=== PATIENT | male | born 1990 | race Caucasian/White ===

== ENCOUNTER 2019-08-02 14:03 | Inpatient (IN) | payer SELFPAY ==
[~2019-08-02] VITALS: Ht 182.9 cm; Wt 73.6 kg
[2019-08-02 14:25] LABS: BASOPHILS 0.6 % (0-2); EOSINOPHILS 2.4 % (0-7); HEMATOCRIT 40.9 % (42.0-54.0); HEMOGLOBIN 13.6 g/dL (13.5-17.5); IMMATURE GRANULOCYTES 0.4 % (0-5); LYMPHOCYTES 26.5 % (15-50); MCH 36.6 pg (26.0-34.0); MCHC 33.3 g/dL (31.0-37.0); MCV 109.9 fL (80.0-100.0); MEAN PLATELET VOLUME 11.6 fL (7.4-10.4); MONOCYTES 17.1 % (2-11); PLATELET COUNT 104 10x3/uL (130-400); RBC 3.72 10x6/uL (4.20-6.10); RDW 13.9 % (11.5-14.5); WBC 5.4 10x3/uL (4.8-10.8)
[2019-08-02 15:04] LABS: CALC OSMOLALITY 278 mosm/kg (275-300); CALCIUM 9.3 mg/dL (8.5-10.1); CARBON DIOXIDE 14.6 mmol/L (21.0-32.0); CHLORIDE - SERUM 98 mmol/L (98-107); CREATININE - SERUM 0.9 mg/dL (0.6-1.3); GLUCOSE 107 mg/dL (74-106); SODIUM 141 mmol/L (136-145); UREA NITROGEN 7 mg/dL (7-18); eGFR NON AFRICAN AMERICAN > 90 mL/min (90-120)
[2019-08-02 15:09] LABS: ALBUMIN 4.6 g/dL (3.4-5.0); ALKALINE PHOSPHATASE 112 U/L (46-116); ALT (SGPT) 191 U/L (10-68); BILIRUBIN - TOTAL 0.79 mg/dL (0.2-1.3); MAGNESIUM - SERUM 1.8 mg/dL (1.8-2.4)
[2019-08-02 15:29] LABS: APPEARANCE CLEAR (CLEAR); COLOR YELLOW (YELLOW)
[2019-08-02 15:30] LABS: BILIRUBIN NEGATIVE (NEGATIVE); GLUCOSE NEGATIVE (NEGATIVE); KETONE NEGATIVE (NEGATIVE); NITRITE NEGATIVE (NEGATIVE); PROTEIN TRACE mg/dL (NEGATIVE); UROBILINOGEN NORMAL (NORMAL)
[2019-08-02 15:31] LABS: BACTERIA FEW /hpf (NEGATIVE); RED CELLS - URINE 0-5 /hpf (0-5); WHITE CELLS - URINE OCC /hpf (NEGATIVE)
[2019-08-02 15:35] LABS: UDS - AMPHET NEGATIVE QUAL (NEGATIVE); UDS - BARB NEGATIVE QUAL (NEGATIVE); UDS - BENZO POSITIVE QUAL (NEGATIVE); UDS - COCAINE NEGATIVE QUAL (NEGATIVE); UDS - OPIATE NEGATIVE QUAL (NEGATIVE); UDS - PCP NEGATIVE QUAL (NEGATIVE); UDS - THC NEGATIVE QUAL (NEGATIVE)
--- NOTE | 2019-08-02 18:40 | NUR ---
PT RECIEVED VIA ED STRETCHER. TRANSFERRED TO ICU BED CV06. PT IS AWAKE AND FOLLOWS SIMPLE COMMANDS. SHAKING AND HAVING DIFFICULTY WITH FINE MOTOR SKILLS. REPEATEDLY SAYING HE HAS TO GO SMOKE. TOLD THAT HE CANT. HE IS PICKING AT ALL MONITOR EQUIPMENT AND IV LINES. LINES ARE HIDDEN TO HOPEFULLY PREVENT HIM PULLING THEM OUT.
[2019-08-02 18:41] LABS: INR 0.97 (0.85-1.17); PROTIME 12.4 SECONDS (11.6-15.0)
[2019-08-02 19:00] VITALS: BP 118/88
--- NOTE | 2019-08-02 19:15 | NUR ---
PT RESTING WITH EYES CLOSED AND CHEST RISING. NO S/S OF DISTRESS. AWOKEN TO VERBAL STIMULI. PT QUICKLY BACK TO SLEEP WITHOUT STIMULI. UPPER EXTREMETIES WEAK, WITH EYES DILATED TO 5 WITH SLOW REACTION TO LIGHT. CHATMAN PATENT. IV TO RIGHT FOREARM, AND LEFT HAND. RECEIVING SODIUM BICARB, LRD5, AND POTASSIUM CHLORIDE. WILL CONTINUE TO OBSERVE.
[2019-08-02 20:00] VITALS: BP 127/84
[2019-08-02 21:00] VITALS: BP 119/80
[2019-08-02 21:41] VITALS: BP 128/102; Ht 182.9 cm; Wt 73.6 kg
--- NOTE | 2019-08-02 21:45 | NUR ---
PT RESTING WITH EYES CLOSED AND CHEST RISING. EASILY AWOKEN TO VERBAL STIMULI. SOME CONFUSION NOTED. NO S/S OF DISTRESS. CALL LIGHT IN REACH. WILL CONTINUE TO OBSERVE.
[2019-08-02 22:00] VITALS: BP 112/83
[2019-08-02 23:00] VITALS: BP 109/85
--- NOTE | 2019-08-02 23:13 | NUR ---
PT RESTING WITH EYES CLOSED AND CHEST RISING. EASILY AWOKEN WITH VERBAL STIMULI. NO S/S OF DISTRESS. CONFUSION NOTED WITH IMPROVEMENT NOTED. UPPER EXTREMITY STRENGTH WEAKENED. WILL CONTINUE TO OBSERVE.
[2019-08-03] VITALS (16 sets, daily range): BP systolic 101–126; BP diastolic 60–85
--- NOTE | 2019-08-03 03:05 | NUR ---
PT RESTING WITH EYES CLOSED AND CHEST RISING. NO S/S OF DISTRESS. WILL CONTINUE TO OBSERVE.
[2019-08-03 06:35] LABS: ALBUMIN 4.1 g/dL (3.4-5.0); ALKALINE PHOSPHATASE 98 U/L (46-116); ALT (SGPT) 154 U/L (10-68); BILIRUBIN - TOTAL 1.05 mg/dL (0.2-1.3); CHLORIDE - SERUM 98 mmol/L (98-107); MAGNESIUM - SERUM 2.1 mg/dL (1.8-2.4); SODIUM 135 mmol/L (136-145)
--- NOTE | 2019-08-03 06:40 | NUR ---
PT WITH EYES CLOSED AND CHEST RISING. EASILY AWOKEN TO VERBAL STIMULI. RECEIVED SCHEDULED MEDICATIONS PER NOV. TOLERATED WELL.
--- NOTE | 2019-08-03 07:00 | NUR ---
SHIFT ASSESSMENT COMPLETED. PT CARE ASSUMED. MONITORS ON AND WORKING, VITALS STABLE,PT CONFUSED BUT ORIENTED TO TIME AND PLACE. CALL LIGHT WIHTIN REACH, SEE FLOW SHEET FOR FURTHER DETAILS. WILL CONTINUE TO OBSERVE.
[2019-08-03 07:07] LABS: CALC OSMOLALITY 270 mosm/kg (275-300); CARBON DIOXIDE 29.7 mmol/L (21.0-32.0); CREATININE - SERUM 0.5 mg/dL (0.6-1.3); GLUCOSE 170 mg/dL (74-106); POTASSIUM - SERUM 4.1 mmol/L (3.5-5.1); UREA NITROGEN 5 mg/dL (7-18); eGFR NON AFRICAN AMERICAN > 90 mL/min (90-120)
--- NOTE | 2019-08-03 09:00 | NUR ---
FAMILY AT BEDSIDE, UPDATE PROVIDED, NO SIGNS/SYMPTOMS OF PAIN OR DISCOMFORT NOTED AT THIS TIME, PRN ATIVAN GIVEN Q1HR FOR DTS, CALL LIGHT WITHIN REACH, WILL CONTINUE TO OBSERVE.
--- NOTE | 2019-08-03 11:00 | NUR ---
PT THREATENS TO LEAVE AMA REGULARLY, ATIVAN PRN GIVEN Q1H FOR DTS, PT AWAKE AND ALERT TO PERSON PLACE TIME ETC. MONITORS ON AND WORKING, VITALS STABLE, CALL LIGHT WITHIN REACH, SEE FLOW SHEET FOR FURTHER DETAILS. WILL CONTINNUE TO OBSERVE.
--- NOTE | 2019-08-03 13:00 | NUR ---
PT SITTING UP IN BED THREATENING TO LEAVE AMA, MONITORS ON AND WORKING, VITALS STABLE, CALL LIGHT WITHIN REACH, WILL CONTINUE TO OBSERVE.
--- NOTE | 2019-08-03 15:28 | NUR ---
AFTER MULTIPLE REATTEMPTS TO REORIENT THE PT AND TO EXPLAIN THAT HE IS NOT TO GET OOB, DR KAMARA NOTIFIED AND SOFT RESTRAINTS FOR WRIST ORDERED.
--- NOTE | 2019-08-03 15:52 | NUR ---
PT LEFT FOR MRI.
--- NOTE | 2019-08-03 16:28 | NUR ---
PT BACK IN THE UNIT. HOOKED TO ICU MONITORS. PT CALM AT THIS TIME. PT MADE A VERBAL AGREEMENT THAT HE WOULD NOT CLIMB OOB. ALARMS ON AND PT IN SITE OF NURSING STATION. PT LEFT UNRESTRAINED.
--- NOTE | 2019-08-03 16:34 | NUR ---
DR MAYER NOTIFIED ABOUT MRI RESULTS. HE STATED HE WILL BE UP TO SEE THE PT SOON.
--- NOTE | 2019-08-03 17:48 | NUR ---
PT STILL ATTEMPTING TO CLIMB OOB. BED ALARMS ON PT WAS RESTRAINED. PT A&O X4. "IF I DONT WANT TO BE HERE, THEN I CAN LEAVE." DR KAMARA CALLED AND NOTIFIED. PT LEAVING AMA.
--- NOTE | 2019-08-03 18:02 | NUR ---
DR KAMARA NOTIFIED THAT THE PT IS LEAVING AMA.
--- NOTE | 2019-08-03 18:02 | NUR ---
PT IS A&O X4. HE IS ANSWERING ANSWERS APPROPRIATELY. PT STILL DEMANDING TO LEAVE AMA. PT HAS BEEN EXPLAINED THE RISK AND BENEFITS OF LEAVING AMA AND THAT POSSIBLE COULD OCCURE. PT SIGNED AMA PAPER WORK AND HIS MOTHER WAS NOTIFIED TO PICK HIM UP.
--- NOTE | 2019-08-03 18:06 | NUR ---
DR MAYER PAGED AND MADE AWARE THAT THE PT IS LEAVING AMA.
--- NOTE | 2019-08-03 18:09 | NUR ---
IV DCD TO RT WRIST AT THIS TIME. CATHETER TIP INTACT.
--- NOTE | 2019-08-03 18:40 | NUR ---
LEFT AMA AT THIS TIME WITH ALL PERSONAL ITEMS VIA PERSONAL VEHICLE WITH MOTHER AND FATHER. PT ALERT AND ORIENTED. PT AND PTS FAMILY STATE THEY UNDERSTAND THE CONSEQUENCES RELATED TO PT LEAVING AMA, PT STATES HE DOES NOT CARE. PTS PARENTS ENCOURAGE PT TO STAY IN HOSPITAL AND NOT LEAVE AMA, PT STILL STATES HE WANTS TO LEAVE AND REFUSES TO STAY. AMA PAPERWORK SIGNED BY PT, WITNESSED BY A SECOND NURSE. NO FURTHER ACTIONS.
--- NOTE | 2019-08-04 17:43 | MORECARE ---
CASE MANAGEMENT DISCHARGE SUMMARY PATIENT: CORNELIUS GOLD UNIT: [id number] ADM DATE: 08/02/19 AGE: 28 : [birth year] SEX: M ROOM/BED: [facility] AUTHOR: NAKUL BRAVO PHYSICIAN: REFERRING PHYSICIAN: JUSTYNA KAMARA MD DATE OF SERVICE: 08/04/19 Discharge Plan Patient Name: CORNELIUS GOLD [facility] [facility] 1990 Planned Disposition: Anticipated Discharge Date: Discharge Date: 08/03/2019 Expected LOS: Initial Reviewer: [email or web address] Initial Review Date: 08/02/2019 Generated: 08/04/19 6:43 pm Patient Name: CORNELIUS GOLD Page [id number] at 1743 All edits/amendments must be made on the electronic document DICTATION DATE: 08/04/191742 AIRPLANE TESTER: ISIDRA 08/04/191742 RPT#: [id number] DC DATE:08/03/19 STATUS: DIS IN [facility] [address] [facility] [place] [address] END OF REPORT
== END 2019-08-03 18:53 | disposition left against medical advice (07) | DRG 101 ==
LOC: EDBD 14:03 → D.ER 14:03 → D.CVICU 16:24
PROVIDERS: Emergency Medicine; ADMIT Internal Medicine Nephrology; ATTEND Internal Medicine Nephrology
DX: G40.901 Epilepsy, unspecified, not intractable, with status epilepticus (principal); E87.2 Acidosis; F10.231 Alcohol dependence with withdrawal delirium; E87.6 Hypokalemia; R74.0 Nonspecific elevation of levels of transaminase and lactic acid dehydrogenase [LDH]; D75.89 Other specified diseases of blood and blood-forming organs; G93.9 Disorder of brain, unspecified; W19.XXXA Unspecified fall, initial encounter

== ENCOUNTER 2019-08-03 20:10 | Inpatient (IN) | payer SELFPAY ==
[~2019-08-03] VITALS: Ht 182.9 cm; Wt 68.9 kg
[2019-08-03 20:52] LABS: BASOPHILS 0 % (0-2); EOSINOPHILS 0 % (0-7); HEMOGLOBIN 13.8 g/dL (13.5-17.5); IMMATURE GRANULOCYTES 0.1 % (0-5); LYMPHOCYTES 4.2 % (15-50); MCH 35.8 pg (26.0-34.0); MCHC 33.7 g/dL (31.0-37.0); MONOCYTES 9.1 % (2-11); NEUTROPHILS 86.6 % (40-80); PLATELET COUNT 87 10x3/uL (130-400); RBC 3.86 10x6/uL (4.20-6.10); RDW 13.2 % (11.5-14.5)
[2019-08-03 20:53] LABS: MCV 106.2 fL (80.0-100.0); WBC 8.3 10x3/uL (4.8-10.8)
[2019-08-03 20:53] LABS: COLOR YELLOW (YELLOW)
[2019-08-03 20:54] LABS: APPEARANCE CLEAR (CLEAR); BILIRUBIN NEGATIVE (NEGATIVE); GLUCOSE NEGATIVE (NEGATIVE); KETONE MODERATE mg/dL (NEGATIVE); NITRITE NEGATIVE (NEGATIVE); PROTEIN 1+ mg/dL (NEGATIVE); UROBILINOGEN NORMAL (NORMAL)
[2019-08-03 20:54] LABS: CALCIUM 9.4 mg/dL (8.5-10.1); CARBON DIOXIDE 29.2 mmol/L (21.0-32.0); CHLORIDE - SERUM 97 mmol/L (98-107); GLUCOSE 137 mg/dL (74-106); POTASSIUM - SERUM 3.7 mmol/L (3.5-5.1); SODIUM 134 mmol/L (136-145)
[2019-08-03 20:55] LABS: BACTERIA FEW /hpf (NEGATIVE); EPITHELIAL CELLS NSEEN /hpf (0-5); WHITE CELLS - URINE 0-5 /hpf (NEGATIVE)
[2019-08-03 20:55] LABS: CALC OSMOLALITY 267 mosm/kg (275-300); CREATININE - SERUM 0.8 mg/dL (0.6-1.3); UREA NITROGEN 8 mg/dL (7-18); eGFR NON AFRICAN AMERICAN > 90 mL/min (90-120)
[2019-08-03 21:02] LABS: ALBUMIN 4.2 g/dL (3.4-5.0); ALKALINE PHOSPHATASE 101 U/L (46-116); ALT (SGPT) 153 U/L (10-68); PROTEIN - SERUM 8.6 g/dL (6.4-8.2)
[2019-08-03 21:06] VITALS: BP 116/86
[2019-08-03 21:46] LABS: UDS - AMPHET NEGATIVE QUAL (NEGATIVE); UDS - BARB NEGATIVE QUAL (NEGATIVE); UDS - BENZO POSITIVE QUAL (NEGATIVE); UDS - COCAINE NEGATIVE QUAL (NEGATIVE); UDS - OPIATE NEGATIVE QUAL (NEGATIVE); UDS - PCP NEGATIVE QUAL (NEGATIVE); UDS - THC NEGATIVE QUAL (NEGATIVE)
[2019-08-03 22:03] VITALS: BP 123/91
--- NOTE | 2019-08-03 23:00 | NUR ---
dilantin iv push administration complete at this time.
[2019-08-03 23:08] VITALS: BP 120/90
--- NOTE | 2019-08-03 23:40 | NUR ---
RECIEVED PT BY WHEELCHAIR ACCOMPANIED BY HOSPITAL STAFF. ALERT AND ORIENTED X4. VS STABLE AND AFEBRILE. RESPIRATIONS EVEN AND UNLABORED. NO VISUAL CUES OF DISTRESS NOTED. DENIES ANY OTHER NEEDS AT THIS TIME. BED LOW, SIDE RAILS UP X2. CALL LIGHT IN REACH. WILL CONTINUE TO MONITOR.
[2019-08-03 23:52] VITALS: BP 130/92; BMI 20.6
[2019-08-04] VITALS (13 sets, daily range): BP systolic 98–127; BP diastolic 59–98; Ht 182.9 cm; Wt 68.9 kg
--- NOTE | 2019-08-04 01:00 | NUR ---
PT RESTING IN BED, NO ACUTE DISTRESS NOTED. AUGUST WU APN SPOKE WITH PATIENT, UPDATED ON STATUS. PT CONTINUES TO BE CONFUSED AND DISORIENTED TO TIME, PLACE, AND SITUATION. AVDISED PT AGAINST LEAVING AMA. WILL CONTINUE TO MONITOR.
--- NOTE | 2019-08-04 03:00 | NUR ---
PT DISORIENTED TO PLACE, TIME, AND SITUATION. PT STATED HE WAS "READY TO GET OUT OF HERE, HE'S GOT THINGS TO DO TODAY." REORIENTED NEEDED AND REINFORCED PLAN OF CARE.
[2019-08-04 03:41] LABS: BASOPHILS 0 % (0-2); EOSINOPHILS 0 % (0-7); HEMATOCRIT 37.2 % (42.0-54.0); HEMOGLOBIN 12.3 g/dL (13.5-17.5); IMMATURE GRANULOCYTES 0.2 % (0-5); MCHC 33.1 g/dL (31.0-37.0); MEAN PLATELET VOLUME 12.4 fL (7.4-10.4); MONOCYTES 11.9 % (2-11); NEUTROPHILS 76.9 % (40-80); PLATELET COUNT 80 10x3/uL (130-400); RBC 3.51 10x6/uL (4.20-6.10); RDW 13.2 % (11.5-14.5); WBC 6.5 10x3/uL (4.8-10.8)
[2019-08-04 03:46] LABS: PLATELET ESTIMATE DECREASED
[2019-08-04 03:55] LABS: ALBUMIN 3.7 g/dL (3.4-5.0); ALKALINE PHOSPHATASE 85 U/L (46-116); ALT (SGPT) 127 U/L (10-68); BILIRUBIN - TOTAL 0.95 mg/dL (0.2-1.3); CALC OSMOLALITY 272 mosm/kg (275-300); CALCIUM 8.7 mg/dL (8.5-10.1); CARBON DIOXIDE 29.7 mmol/L (21.0-32.0); CHLORIDE - SERUM 100 mmol/L (98-107); CREATININE - SERUM 0.6 mg/dL (0.6-1.3); GLUCOSE 99 mg/dL (74-106); PHENYTOIN (DILANTIN) 9.3 ug/mL (10.0-20.0); PHOSPHOROUS 2.3 mg/dL (2.5-4.9); POTASSIUM - SERUM 3.2 mmol/L (3.5-5.1); PROTEIN - SERUM 7.4 g/dL (6.4-8.2); SODIUM 137 mmol/L (136-145); UREA NITROGEN 9 mg/dL (7-18); eGFR NON AFRICAN AMERICAN > 90 mL/min (90-120)
--- NOTE | 2019-08-04 05:00 | NUR ---
PT INSISTS ON LEAVING TODAY, REINFORCED THAT PT NEEDS TREATMENT AND EDUCATED ON THE SITUATION REGARDING PLAN OF CARE.
--- NOTE | 2019-08-04 07:26 | NUR ---
REPORT RECEIVED. SHIFT ASSESSMENT COMPLETE. PT AWAKE, FOLLOWS COMMANDS. PLEASANT. RESTING IN BED AT THIS TIME. WANTS TO LEAVE, EXPLAINED HE HAS A HEAD INJURY AND WE NEED TO WATCH HIM CLOSELY TO MAKE SURE THERE AREN'T ANY COMPLICATIONS. DOES HAVE SHAKINESS WHEN ASKED TO RAISE ARMS. HE WAS ATTEMPTING TO RETURN A CARD TO ENVELOPE AND WAS HAVING GREAT DIFFICULTY.
--- NOTE | 2019-08-04 08:28 | NUR ---
pt becoming restless. has gotten up several times attempting to unhook his iv. says he's looking for a phone to get out of here. easily redirected at this time, but is insistent on leaving.
--- NOTE | 2019-08-04 09:46 | NUR ---
PT RESTING QUIETLY AT THIS TIME AFTER LIBRUM ADMINISTRATION AND ORDERED VITAMINS. PT HAD BECOME VERY AGITATED AND PULLING LINES AND GOWN OFF. ATTEMPTED TO PULL OUT IV. PT CURSING SAYING WE CAN'T HOLD HIM HERE. TRIED TO EXPLAIN AGAIN REASON HE IS HERE AND THAT HE HAS A BRAIN BLEED. TOLD HIM IT WAS DANGEROUS FOR HIM TO LEAVE AND THAT HE COULD , AT THAT POINT HE SAID "WE ALL HAVE TO SOMEHOW" WE EXPLAINED TO HIM THAT A NEUROLOGIST WILL BE COMING TO SEE HIM TODAY. SECURITY HAD TO BE CALLED AND PT WAS COOPERATIVE WITH THEM IN THE ROOM. WE WERE ABLE TO GET HIM BACK TO BED AND PLACE MONITORING EQUIPMENT BACK ON HIM WITHOUT HAVING TO RESTRAIN HIM.
[2019-08-04 10:59] LABS: % SATURATION 31 % (15-55); IRON 84 ug/dl (35-150); TOTAL IRON BIND CAPACITY 265 ug/dl (260-445); UNSAT IRON BIND CAPACITY 181 ug/dl (150-375)
--- NOTE | 2019-08-04 12:01 | NUR ---
PT MOTHER CALLED, UPDATE PROVIDED. PT RESTING AT THIS TIME. SHE SAYS SHE IS NOT COMING TO SEE HIM TODAY, SHE NEEDS TO REST.
--- NOTE | 2019-08-04 12:33 | NUR ---
PT AWAKE AT THIS TIME. HAS EATEN PART OF LUNCH. NOW OUT OF BED PULLING OFF MONITORING EQUIPMENT AND SAYS IS GOING TO LEAVE. DR KAMARA ON UNIT AND NOTIFIED.
--- NOTE | 2019-08-04 12:45 | NUR ---
1MG ATIVAN GIVEN REQUESTED BY DR KAMARA
--- NOTE | 2019-08-04 13:20 | NUR ---
PT LAYING IN BED AWAKE, RESTING QUIETLY.
--- NOTE | 2019-08-04 16:12 | NUR ---
DR MAYER HAS BEEN BY TO SEE PATIENT. PT CURRENTLY SITTING ON EDGE OF BED. HAS TOLD ME ONCE AGAIN HE IS LEAVING. ASKED HIM TO PLEASE HAVE PATIENCE AND WE WOULD HAVE DR KAMARA COME BACK BY TO SPEAK WITH HIM.
--- NOTE | 2019-08-04 16:52 | NUR ---
PT MOM CALLED TO CHECK ON HIM AGAIN. HE HAS CALLED HER SAYING THAT WE ARE RELEASING HIM. I LET HER KNOW THAT WE ARE NOT, THAT HE IS NOT MEDICALLY STABLE. SHE SAYS WE SHOULD RESTRAIN HIM IF NEEDED, SHE DOES NOT WANT TO SEE HER KID " ON THE FRONT PORCH"
--- NOTE | 2019-08-04 17:05 | NUR ---
PT HAS COME OUT TO NURSE DESK SEVERAL TIMES ASKING NURSE TO LET HIM GO, OR TO TAKE OUT HIS IV. HAVE ASKED HIM TO GIVE A FEW MORE MINUTES FOR DRAFTER ENGINEERING TO COME SEE HIM.
--- NOTE | 2019-08-04 17:22 | NUR ---
PT HAS PULLED OUT OWN IV. BANDAID PLACED ON SITE. HE INSISTS ON LEAVING. AMA PAPERS HAVE BEEN PRESENTED AND READ IN THEIR ENTIRETY. I AGAIN EXPLAINED THAT IT IS NOT IN HIS BEST INTEREST AND THAT HE IS AT RISK OF . HE SAYS HE UNDERSTANDS THAT, AND THAT "I PASS BY HERE EVERY DAY ON MY WAY TO WORK" HE INDICATED HE UNDERSTOOD EVERYTHING IN THE PAPERWORK AND HE HAS SIGN THEM. DR KAMARA HAS BEEN NOTIFIED PT IS LEAVING.
--- NOTE | 2019-08-04 17:54 | NUR ---
PT HAS LEFT UNIT ON HIS OWN
[2019-08-05] MEDS ORDERED: DILANTIN100 MG PO (13:38)
== END 2019-08-04 17:54 | disposition left against medical advice (07) | DRG 86 ==
LOC: D.ER 20:10 → D.ICU 22:16
PROVIDERS: Family Medicine; ADMIT Internal Medicine Nephrology; ATTEND Internal Medicine Nephrology
DX: S06.300A Unspecified focal traumatic brain injury without loss of consciousness, initial encounter (principal); E87.1 Hypo-osmolality and hyponatremia; F17.203 Nicotine dependence unspecified, with withdrawal; F10.231 Alcohol dependence with withdrawal delirium; S09.90XA Unspecified injury of head, initial encounter; W19.XXXA Unspecified fall, initial encounter; R56.9 Unspecified convulsions; F19.10 Other psychoactive substance abuse, uncomplicated; D75.89 Other specified diseases of blood and blood-forming organs

== ENCOUNTER 2019-08-04 19:43 | Inpatient (IN) | payer SELFPAY ==
[~2019-08-04] VITALS: Ht 182.9 cm; Wt 71.1 kg
--- NOTE | 2019-08-04 20:41 | NUR ---
PT TO RADIOLOGY
[2019-08-04 20:52] LABS: BASOPHILS 0 % (0-2); EOSINOPHILS 0.4 % (0-7); HEMATOCRIT 37.1 % (42.0-54.0); HEMOGLOBIN 12.4 g/dL (13.5-17.5); IMMATURE GRANULOCYTES 0.2 % (0-5); LYMPHOCYTES 12.9 % (15-50); MCH 35.6 pg (26.0-34.0); MCHC 33.4 g/dL (31.0-37.0); MCV 106.6 fL (80.0-100.0); MONOCYTES 10.8 % (2-11); NEUTROPHILS 75.7 % (40-80); PLATELET COUNT 73 10x3/uL (130-400); RBC 3.48 10x6/uL (4.20-6.10); RDW 13.3 % (11.5-14.5); WBC 5.7 10x3/uL (4.8-10.8)
[2019-08-04 21:01] LABS: APTT 22.2 SECONDS (22.8-39.4); CALC OSMOLALITY 274 mosm/kg (275-300); CALCIUM 8.2 mg/dL (8.5-10.1); CARBON DIOXIDE 26.7 mmol/L (21.0-32.0); CHLORIDE - SERUM 102 mmol/L (98-107); CREATININE - SERUM 0.6 mg/dL (0.6-1.3); GLUCOSE 95 mg/dL (74-106); INR 0.9 (0.85-1.17); POTASSIUM - SERUM 3.2 mmol/L (3.5-5.1); PROTIME 11.6 SECONDS (11.6-15.0); SODIUM 138 mmol/L (136-145); UREA NITROGEN 10 mg/dL (7-18); eGFR NON AFRICAN AMERICAN > 90 mL/min (90-120)
--- NOTE | 2019-08-04 21:01 | NUR ---
PT RETURNED FROM RADIOLOGY.
[2019-08-04 21:12] LABS: APPEARANCE CLEAR (CLEAR); COLOR YELLOW (YELLOW); NITRITE NEGATIVE (NEGATIVE); PROTEIN NEGATIVE (NEGATIVE)
[2019-08-04 21:13] LABS: BILIRUBIN NEGATIVE (NEGATIVE); GLUCOSE NEGATIVE (NEGATIVE); KETONE NEGATIVE (NEGATIVE); RED CELLS - URINE 0-5 /hpf (0-5); UROBILINOGEN NORMAL (NORMAL); WHITE CELLS - URINE OCC /hpf (NEGATIVE)
[2019-08-04 21:17] LABS: ALBUMIN 3.9 g/dL (3.4-5.0); ALKALINE PHOSPHATASE 94 U/L (46-116); ALT (SGPT) 135 U/L (10-68); BILIRUBIN - TOTAL 0.75 mg/dL (0.2-1.3); LIPASE 348 U/L (73-393); MAGNESIUM - SERUM 2.2 mg/dL (1.8-2.4); PROTEIN - SERUM 7.5 g/dL (6.4-8.2); THYROID STIMULATING HORMONE 4.47 uIU/mL (0.36-3.74)
[2019-08-04 21:19] LABS: UDS - AMPHET NEGATIVE QUAL (NEGATIVE); UDS - BARB NEGATIVE QUAL (NEGATIVE); UDS - BENZO POSITIVE QUAL (NEGATIVE); UDS - COCAINE NEGATIVE QUAL (NEGATIVE); UDS - OPIATE NEGATIVE QUAL (NEGATIVE); UDS - PCP NEGATIVE QUAL (NEGATIVE); UDS - THC NEGATIVE QUAL (NEGATIVE)
[2019-08-04 23:00] VITALS: BP 141/81
[2019-08-04 23:05] VITALS: BP 141/81; Ht 182.9 cm; Wt 71.1 kg
--- NOTE | 2019-08-04 23:05 | NUR ---
RECEIVED PT TO ROOM 2305 VIA WHEELCHAIR ACCOMPANIED BY ER STAFF, ICU MONITORS ESTABLISHED WITH ALARMS ON, VSS, DENIES ANY NEEDS AT THIS TIME. PT ORIENTED X 4, CALL LIGHT IN REACH.
[2019-08-05] VITALS (11 sets, daily range): BP systolic 114–154; BP diastolic 73–98
--- NOTE | 2019-08-05 03:34 | NUR ---
REASSESSMENT PER FLOWSHEET, NO ACUTE CHANGES NOTED, PT DENIES ANY NEEDS AT THIS TIME.
[2019-08-05 03:59] LABS: BASOPHILS 0.2 % (0-2); HEMATOCRIT 35.1 % (42.0-54.0); HEMOGLOBIN 11.7 g/dL (13.5-17.5); LYMPHOCYTES 20.9 % (15-50); MCH 35.3 pg (26.0-34.0); MCHC 33.3 g/dL (31.0-37.0); MEAN PLATELET VOLUME 10.9 fL (7.4-10.4); NEUTROPHILS 64.9 % (40-80); PLATELET COUNT 73 10x3/uL (130-400); RBC 3.31 10x6/uL (4.20-6.10); RDW 13.1 % (11.5-14.5)
[2019-08-05 04:05] LABS: WBC 4.2 10x3/uL (4.8-10.8)
[2019-08-05 04:13] LABS: ALBUMIN 3.4 g/dL (3.4-5.0); ALKALINE PHOSPHATASE 84 U/L (46-116); ALT (SGPT) 108 U/L (10-68); BILIRUBIN - TOTAL 0.59 mg/dL (0.2-1.3); CALC OSMOLALITY 278 mosm/kg (275-300); CALCIUM 7.7 mg/dL (8.5-10.1); CARBON DIOXIDE 26.7 mmol/L (21.0-32.0); CHLORIDE - SERUM 105 mmol/L (98-107); CREATININE - SERUM 0.6 mg/dL (0.6-1.3); GLUCOSE 112 mg/dL (74-106); POTASSIUM - SERUM 3.4 mmol/L (3.5-5.1); PROTEIN - SERUM 6.9 g/dL (6.4-8.2); SODIUM 140 mmol/L (136-145); UREA NITROGEN 9 mg/dL (7-18); eGFR NON AFRICAN AMERICAN > 90 mL/min (90-120)
[2019-08-05 04:16] LABS: % SATURATION 25 % (15-55); IRON 62 ug/dl (35-150); TOTAL IRON BIND CAPACITY 247 ug/dl (260-445); UNSAT IRON BIND CAPACITY 185 ug/dl (150-375)
--- NOTE | 2019-08-05 07:26 | NUR ---
BEDSIDE SWALLOW EVAL COMPLETED, PT TOLERATED SIPS OF WATER WITHOUT ANY S/S OF ASPIRATION. NO COUGH/GAGGING NOTED.
--- NOTE | 2019-08-05 08:00 | NUR ---
CURTAIN PULLED FOR PATIENT TO USE THE BATHROOM. WHEN NURSE PULLED CURTAIN BACK, PATIENT WAS GONE. SECURITY NOTIFIED. HOUSE SUPERVISORY NOTIFIED, DR. KAMARA NOTIFIED.
--- NOTE | 2019-08-05 08:10 | NUR ---
PATIENT FOUND ON FIRST FLOOR NEAR EXIT, RETURNED TO ROOM [facility], STATES NO ONE TOLD HIM HE COULD NOT LEAVE. EXPLAINED THAT HE HAD A BLOOD CLOT IN HIS BRAIN AND HE WAS NOT THINKING PROPERLY RIGHT NOW AND THAT IS WHY HE COULD NOT LEAVE. PATIENT CRYING EMOTIONAL SUPPORT GIVEN. BREAKFAST SERVED ATE WELL.NO PROBLEMS SWALLOWING . MOTHER CALLED UPDATE GIVEN.
--- NOTE | 2019-08-05 09:00 | NUR ---
ATIVAN GIVEN FOR HAND TREMORS AND KEEP PATIENT CALM.
--- NOTE | 2019-08-05 10:00 | NUR ---
RESTING IN BED, WITH HEAD COVERED UP, RESP DEEP AND REGULAR NO DISTRESS. IV LEFT FOREARM INFUSING WITH D5W AT 150 ML HOUR. FRESH WATER GIVEN. DENIES PAIN. POLITE WHEN NICOTINE PATCH APPLIED.
--- NOTE | 2019-08-05 12:15 | NUR ---
MOTHER HERE. UPDATE GIVEN.PATIENT AWAKE AND ALERT. GETTING UP TO USE URINAL. NO DISTRESS.
--- NOTE | 2019-08-05 12:50 | NUR ---
DR. DE LEON HERE TALKED WITH PATIENT AND FAMILY.
--- NOTE | 2019-08-05 13:15 | NUR ---
DR. KAMARA TALKED WITH FAMILY AND PATIENT. PATIENT WITHOUT DISTRESS. HANDS COMMERCIAL PHOTOGRAPHER EQUAL AND STRONG. SPEECH CLEAR. NO DISTRESS IV PATENT INFUSING WITH D5W AT 150 ML HOUR
[2019-08-05] MEDS ORDERED: DILANTIN100 MG PO (13:38)
--- NOTE | 2019-08-05 14:28 | MORECARE ---
CASE MANAGEMENT DISCHARGE SUMMARY PATIENT: CORNELIUS GOLD UNIT: [id number] ADM DATE: 08/05/19 AGE: 28 : [birth year] SEX: M ROOM/BED: D.2305 AUTHOR: NAKUL BRAVO PHYSICIAN: REFERRING PHYSICIAN: JUSTYNA KAMARA MD DATE OF SERVICE: 08/05/19 Discharge Plan Patient Name: CORNELIUS GOLD [facility] [facility] 1990 Planned Disposition: Home Anticipated Discharge Date: Discharge Date: Expected LOS: Initial Reviewer: [email or web address] Initial Review Date: 08/05/2019 Generated: 08/05/19 3:27 pm DCPIA - Discharge Planning Initial Assessment Updated by [email or web address]: Kasandra Rosario on 08/05/19 2:22 pm * Is the patient Alert and Oriented? Yes * PCP NONE * Pharmacy ANY * Preadmission Environment Home with Family * ADLs Independent * Equipment None * List name and contact numbers for known caregivers / representatives who currently or will assist patient after discharge: GERONIMO TAVAREZ, [phone] * Community resources currently utilized None * Additional services required to return to the preadmission environment? No * Can the patient safely return to the preadmission environment? Yes * Has this patient been hospitalized within the prior 30 days at any hospital? No Patient Name: CORNELIUS GOLD Page 13881 at 1428 All edits/amendments must be made on the electronic document DICTATION DATE: 08/05/191426 MAINFRAME SYSTEMS ADMINISTRATOR: ISIDRA 08/05/191426 RPT#: [id number] DC DATE: STATUS: ADM IN [facility] [address] [place] [address] END OF REPORT
--- NOTE | 2019-08-05 14:34 | MORECARE ---
CASE MANAGEMENT DISCHARGE SUMMARY PATIENT: CORNELIUS GOLD UNIT: [id number] ADM DATE: 08/05/19 AGE: 28 : [birth year] SEX: M ROOM/BED: D.2305 AUTHOR: SHELLY,DOC PHYSICIAN: REFERRING PHYSICIAN: JUSTYNA KAMARA MD DATE OF SERVICE: 08/05/19 Discharge Plan Patient Name: CORNELIUS GOLD Facility: [facility]:[place] : 1990 Planned Disposition: Home Anticipated Discharge Date: Discharge Date: Expected LOS: Initial Reviewer: [email or web address] Initial Review Date: 08/05/2019 Generated: 08/05/19 3:34 pm Comments DCP- Discharge Planning Updated by [email or web address]: Kasandra Rosario on 08/05/19 1:[address] Patient Name: CORNELIUS GOLD Admission Status: ER Accout number: [id number] Admission Date: 08-05-2019 : 1990 Admission Diagnosis: Attending: JUSTYNA KAMARA Current LOS: 1 Anticipated DC Date: Planned Disposition: Home Primary Insurance: UNINSURED DISCOUNT PLAN Discharge Planning Comments: CM MET WITH PATIENT ABOUT DC PLANNING/NEEDS. PLANS TO DC TO HOME WITH MOTHER. LIST OF BEHAVIORAL HEALTH AND COUNSELING CLINIC FACILITIES GIVEN TO PATIENT. [facility] HASN'T APPLIED FOR MEDICAID. I WILL SEND RUFINA WITH [facility] AN EMAIL. THE NUMBER FOR THE PATIENT IS CORRECT ON HIS FACESHEET. CM TO FOLLOW. Gmat Tutor: Kasandra Rosario DCPIA - Discharge Planning Initial Assessment Updated by [id number]: Kasandra Rosario on 08/05/19 2:22 pm * Is the patient Alert and Oriented? Yes * PCP NONE * Pharmacy ANY * Preadmission Environment Home with Family * ADLs Independent * Equipment None * List name and contact numbers for known caregivers / representatives who currently or will assist patient after discharge: CORBY MOM, [phone] * Community resources currently utilized None * Additional services required to return to the preadmission environment? No * Can the patient safely return to the preadmission environment? Yes * Has this patient been hospitalized within the prior 30 days at any hospital? No Last DP export: 08/05/19 1:28 p Patient Name: CORNELIUS GOLD Page [id number] at 1434 All edits/amendments must be made on the electronic document DICTATION DATE: 08/05/191433 CYLINDER TESTER: ISIDRA 08/05/191433 RPT#: [id number] DC DATE: STATUS: ADM IN [facility] [address] [place] [address] END OF REPORT
--- NOTE | 2019-08-05 14:45 | NUR ---
PATIENT DISCHARGE HOME WITH MOTHER PER WHEEL CHAIR. REVIEWED DISCHARGE INSTRUCTION WITH PATIENT AND MOTHER. PRESCRIPTION OF DILANTIN IN PATIENT HAND ON DISCHARGE. PATIENT UNDERSTANDS HE CAN NOT DRIVE FOR 6 MONTH OR UNTIL CLEARED BY AN MD. PATIENT UNDERSTANDS HE CAN NOT DRIVE HEAVY EQUIPMENT FOR 3 MONTH OR UNTIL CLEARED BY MD. NO DISTRESS.
--- NOTE | 2019-08-06 20:53 | CN ---
PATIENT NAME:CORNELIUS GOLD MEDICAL RECORD: [id number] : [birth year] LOCATION:ZAYD.2305 ADMIT DATE: 08/05/19 ACCOUNT: [id number] CONSULTING PHYSICIAN: NACHO DE LEON MD REFERRING PHYSICIAN: JUSTYNA KAMARA MD DATE OF CONSULTATION: 08/05/2019 IDENTIFYING DATA: The patient is 28 years old, and he is admitted to the hospital on a voluntary basis. CHIEF COMPLAINT: Headache and confusion. HISTORY OF PRESENT ILLNESS: The patient presented to the Emergency Room after having a witnessed seizure. I do not have details about who witnessed it or exactly what happened, but it does sound like a legitimate tonic-clonic seizure and the confusion is most likely associated with a postictal state. He has had an evaluation and it looks as though he has had an intracranial hemorrhage that is not in need of neurosurgical intervention. He has also been started on Dilantin. The patient denies mental health issues. He has no evidence of depression or psychotic symptoms and certainly no evidence of harming himself or others. He is minimizing his drinking, which his mother who is present in the exam room is not accepting. Apparently, he drinks excessively, although I do not have details about how it has interfered with his functioning nor do I have details about exactly how much. He denies other drug use, although he does have a past history of drug use. ASSESSMENT: 1. Cluster B personality traits. 2. Alcohol abuse. 3. Adjustment disorder with mixed emotional features. PLAN: At this time, the patient has no evidence of acute or direct dangerousness. He does not require any sort of inpatient psychiatric care; however, he is interested in outpatient counseling and followup and mentions that he thinks his seizures may be stress related. I think it would be appropriate for him to go to community counseling. I am also going to recommend that he go to Alcoholics Anonymous, although I do not expect he would go. I would recommend he be given the location of AA clubs in this area. He does not want any kind of residential treatment, does not feel it is necessary. His long-term prognosis is guarded. I suspect when he does drink, he will behave in irrational ways, but currently he has no evidence of dangerousness. He also is strongly denying the use of benzodiazepines, which his urine is positive for. He says he has done this in the past, but none recently. TRANSINT:[id number] Voice Confirmation ID: [id number] DOCUMENT ID: [id number] NACHO DE LEON MD at 2053 CC: [id number] DICTATION DATE: 08/05/19 1256 LANDSCAPE AND YARDWORK LABORER: 08/05/19 1318 DIS IN 08/05/19 [address] [place] [address]
--- NOTE | 2019-08-07 09:05 | MORECARE ---
CASE MANAGEMENT DISCHARGE SUMMARY PATIENT: CORNELIUS GOLD UNIT: [id number] ADM DATE: 08/05/19 AGE: 28 : [birth year] SEX: M ROOM/BED: D.2305 AUTHOR: SHELLY,DOC PHYSICIAN: REFERRING PHYSICIAN: JUSTYNA KAMARA MD DATE OF SERVICE: 08/07/19 Discharge Plan Patient Name: CORNELIUS GOLD Facility: [facility]:[place] : 1990 Planned Disposition: Home Anticipated Discharge Date: Discharge Date: 08/05/2019 Expected LOS: Initial Reviewer: [id number] Initial Review Date: 08/05/2019 Generated: 08/07/19 10:05 am Comments DCP- Discharge Planning Updated by [id number]: Kasandra Rosario on 08/05/19 1:[address] Patient Name: CORNELIUS GOLD Admission Status: ER Accout number: [id number] Admission Date: 08-05-2019 : 1990 Admission Diagnosis: Attending: JUSTYNA KAMARA Current LOS: 1 Anticipated DC Date: Planned Disposition: Home Primary Insurance: UNINSURED DISCOUNT PLAN Discharge Planning Comments: CM MET WITH PATIENT ABOUT DC PLANNING/NEEDS. PLANS TO DC TO HOME WITH MOTHER. LIST OF BEHAVIORAL HEALTH AND COUNSELING CLINIC FACILITIES GIVEN TO PATIENT. [facility] HASN'T APPLIED FOR MEDICAID. I WILL SEND RUFINA WITH [facility] AN EMAIL. THE NUMBER FOR THE PATIENT IS CORRECT ON HIS FACESHEET. CM TO FOLLOW. Card Stripper: Kasandra Rosario DCPIA - Discharge Planning Initial Assessment Updated by [email or web address]: Kasandra Rosario on 08/05/19 2:22 pm * Is the patient Alert and Oriented? Yes * PCP NONE * Pharmacy ANY * Preadmission Environment Home with Family * ADLs Independent * Equipment None * List name and contact numbers for known caregivers / representatives who currently or will assist patient after discharge: CORBY MOM, [phone] * Community resources currently utilized None * Additional services required to return to the preadmission environment? No * Can the patient safely return to the preadmission environment? Yes * Has this patient been hospitalized within the prior 30 days at any hospital? No Last DP export: 08/05/19 1:34 p Patient Name: CORNELIUS GOLD Page 80772 at 0905 All edits/amendments must be made on the electronic document DICTATION DATE: 08/07/19904 MULTIPLE WIRE SAWYER: ISIDRA 08/07/19904 RPT#: [id number] DC DATE:08/05/19 STATUS: DIS IN [facility] [address] [place] [address] END OF REPORT
== END 2019-08-05 15:02 | disposition home or self-care (01) | DRG 65 ==
LOC: D.ER 19:43 → OBSVTIME 21:38 → D.ICU 21:38
PROVIDERS: Family Medicine; ADMIT Internal Medicine Nephrology; ATTEND Internal Medicine Nephrology
DX: I62.9 Nontraumatic intracranial hemorrhage, unspecified (principal); F17.203 Nicotine dependence unspecified, with withdrawal; F10.10 Alcohol abuse, uncomplicated; F19.10 Other psychoactive substance abuse, uncomplicated; E87.6 Hypokalemia; D53.9 Nutritional anemia, unspecified; S09.8XXA Other specified injuries of head, initial encounter; W19.XXXA Unspecified fall, initial encounter; E03.9 Hypothyroidism, unspecified; F43.29 Adjustment disorder with other symptoms